=== PATIENT | female | born 1940 | race Two or more races ===

== ENCOUNTER 2022-08-09 14:43 | Emergency (ER) | payer OTHER ==
[~2022-08-09] VITALS: Ht 152.4 cm; Wt 65.3 kg
[~2022-08-09 14:43] MED LIST: LEVSIN0.125 MG PO; PROTONIX40 MG PO; ZANTAC300 MG PO; ZOFRAN4 MG PO
[2022-08-09] MEDS ORDERED: SULINDAC200 MG PO (15:14)
[2022-08-09] MEDS ORDERED: FOLIC ACID1 MG PO (15:14)
[2022-08-09] MEDS ORDERED: LOSARTAN POTASS50 MG PO (15:14)
== END 2022-08-09 19:35 | disposition home or self-care (01) ==
LOC: ER 14:43 → EMR PED 14:51 → ER 14:51
DX: S52.511A Displaced fracture of right radial styloid process, initial encounter for closed fracture (principal); W18.30XA Fall on same level, unspecified, initial encounter; Y93.9 Activity, unspecified; Y92.018 Other place in single-family (private) house as the place of occurrence of the external cause; Z88.0 Allergy status to penicillin

== ENCOUNTER 2022-08-15 07:58 | Outpatient (CLI) | payer OTHER ==
[~2022-08-15 07:58] MED LIST changes: +FOLIC ACID1 MG PO; +LOSARTAN POTASS50 MG PO; +SULINDAC200 MG PO
== END 2022-08-15 08:10 | disposition home or self-care (01) ==
LOC: TOM 07:58
PROVIDERS: ATTEND Orthopaedic Surgery
DX: S52.571A Other intraarticular fracture of lower end of right radius, initial encounter for closed fracture (principal)

== ENCOUNTER 2022-08-20 06:24 | Day surgery (SDC) | payer OTHER ==
[~2022-08-20] VITALS: Ht 152.4 cm; Wt 63.5 kg
== END 2022-08-20 14:30 | disposition home or self-care (01) ==
LOC: CIR.AMB 06:24
PROVIDERS: ATTEND Orthopaedic Surgery
DX: S52.511A Displaced fracture of right radial styloid process, initial encounter for closed fracture (principal); M62.431 Contracture of muscle, right forearm; M65.831 Other synovitis and tenosynovitis, right forearm; Z20.822 Contact with and (suspected) exposure to COVID-19; Z88.0 Allergy status to penicillin; I10 Essential (primary) hypertension
CPT/HCPCS: 25609; L8699

== ENCOUNTER 2022-09-17 11:00 | Outpatient (CLI) | payer OTHER | END 2022-09-17 11:03 | disposition home or self-care (01) | LOC: RAD 11:00 | PROVIDERS: ATTEND Orthopaedic Surgery | DX: S52.571D Other intraarticular fracture of lower end of right radius, subsequent encounter for closed fracture with routine healing (principal) ==

== ENCOUNTER 2022-12-24 14:24 | Outpatient (CLI) | payer OTHER | END 2022-12-24 14:30 | disposition home or self-care (01) | LOC: RAD 14:24 | PROVIDERS: ATTEND Orthopaedic Surgery | DX: M24.541 Contracture, right hand (principal); S52.571D Other intraarticular fracture of lower end of right radius, subsequent encounter for closed fracture with routine healing ==

== ENCOUNTER → 2023-03-04 09:22 | Outpatient (CLI) | payer OTHER | END | disposition home or self-care (01) | LOC: LAB 09:22 | PROVIDERS: ATTEND Orthopaedic Surgery | DX: M85.9 Disorder of bone density and structure, unspecified (principal); E83.42 Hypomagnesemia; E56.1 Deficiency of vitamin K ==

== ENCOUNTER 2024-02-26 10:35 | Outpatient (CLI) | payer OTHER ==
[2024-02-26 14:19] LABS: ALBUMIN 4.2 gm/dL (3.4-5.0); BILIRUBIN TOTAL 0.95 mg/dL (0.3-1.2); CALCIUM 9.7 mg/dL (8.5-10.1); CREATININE SERUM 1.09 mg/dL (0.55-1.02); GFR 47.82; GLOBULINA 3.6 G/DL (2.4-3.5); MAGNESIUM 2.1 mg/dL (1.8-2.4); PHOSPHOROUS 3.8 mg/dL (2.5-4.9); POTASSIUM 3.9 mEq/L (3.5-5.1); TOTAL PROTEIN 7.8 gm/dL (6.4-8.2)
== END 2024-02-26 10:37 | disposition home or self-care (01) ==
LOC: LAB 10:35
PROVIDERS: ATTEND Orthopaedic Surgery
DX: E55.9 Vitamin D deficiency, unspecified (principal); M85.9 Disorder of bone density and structure, unspecified; E56.1 Deficiency of vitamin K; E21.3 Hyperparathyroidism, unspecified; E88.89 Other specified metabolic disorders; M81.8 Other osteoporosis without current pathological fracture

== ENCOUNTER 2024-03-05 13:39 | Outpatient (CLI) | payer OTHER | END 2024-03-05 13:40 | disposition home or self-care (01) | LOC: NUCLEAR 13:39 | PROVIDERS: ATTEND Orthopaedic Surgery | DX: M81.0 Age-related osteoporosis without current pathological fracture (principal) ==